=== PATIENT | female | born 1995 | race Caucasian/White ===

== ENCOUNTER 2016-07-16 13:55 | Emergency (ER) | payer BC ==
[2016-07-16 14:06] VITALS: BP 120/78
--- NOTE | 2016-07-16 15:35 | ED ---
Skin/Abscess/FB HPI - General Chief complaint: Skin/Abscess/Foreign Body Stated complaint: abcess buttox Time Seen by Provider: 07/16/16 14:22 Source: patient, RN notes reviewed Mode of arrival: ambulatory Limitations: no limitations - History of Present Illness Initial comments: 21-year-old female presents emergency Department with chief complaint of abscess her buttocks region. Patient states this started proximal week ago and was seen at [facility] started on Bactrim. She states that symptoms are getting worse and she's had increased pain. She follow-up with her surgeon and appear on who told her is nothing that they could do for. She states symptoms are getting worse PAIN. Patient states that she had similar symptoms in May when she was placed on Bactrim states that it started resolved states as soon she stopped the antibiotics it got much worse. Patient denies fever, chills. - Related Data Home Medications Medication Instructions Recorded Confirmed Aviane 1 tab PO DAILY 07/16/16 07/16/16 Sulfamethox-Tmp 800-160Mg [Bactrim 1 tab PO BID 07/16/16 07/16/16 DS 800-160 mg] traMADol HCl [Ultram] 50 - 100 mg PO Q6H PRN 07/16/16 07/16/16 Allergies Allergy/AdvReac Type Severity Reaction Status Date / Time No Known Allergies Allergy Verified 07/16/16 14:46 Review of Systems ROS Statement: Those systems with pertinent positive or pertinent negative responses have been documented in the HPI. ROS Other: All systems not noted in ROS Statement are negative. Past Medical History Past Medical History: No Reported History History of Any Multi-Drug Resistant Organisms: None Reported Past Surgical History: No Surgical Hx Reported Past Psychological History: No Psychological Hx Reported Smoking Status: Current some day smoker Past Alcohol Use History: None Reported Past Drug Use History: None Reported General Exam Limitations: no limitations General appearance: alert, in no apparent distress Head exam: Present: atraumatic, normocephalic, normal inspection Respiratory exam: Present: normal lung sounds bilaterally. Absent: respiratory distress, wheezes, rales, rhonchi, stridor Cardiovascular Exam: Present: regular rate, normal rhythm, normal heart sounds. Absent: systolic murmur, diastolic murmur, rubs, gallop, clicks GI/Abdominal exam: Present: soft, normal bowel sounds. Absent: distended, tenderness, guarding, rebound, rigid Rectal exam: Present: other (There is a tender mass on the left inner buttocks region near the perirectal area minimal erythema but there is severely tender with palpation) Course Vital Signs 07/16/16 14:02 Temperature 99.1 F Pulse Rate 78 Respiratory 17 Rate Blood Pressure 120/78 O2 Sat by Pulse 100 Oximetry Medical Decision Making - Medical Decision Making 5-year-old female presented for buttocks abscess. Patient was evaluated by Dr. Stephan Verduzco surgeon in the ER. She feels that there is an abscess there though she has no rectal tenderness in that she'll be scheduled for surgery on Tuesday. - Lab Data Result diagrams: 07/16/16 16:05 Lab Results 07/16/16 Range/Units 16:05 WBC 8.7 (4.0-11.0) k/uL RBC 4.12 (3.80-5.40) m/uL Hgb 12.9 (11.4-16.0) gm/dL Hct 38.3 (34.0-46.0) % MCV 92.8 (80.0-100.0) fL MCH 31.4 (25.0-35.0) pg MCHC 33.8 (31.0-37.0) g/dL RDW 12.0 (11.5-15.5) % Plt Count 254 (150-450) k/uL Neutrophils % 69 % Lymphocytes % 22 % Monocytes % 4 % Eosinophils % 3 % Basophils % 1 % Neutrophils # 6.0 (1.3-7.7) k/uL Lymphocytes # 1.9 (1.0-4.8) k/uL Monocytes # 0.3 (0-1.0) k/uL Eosinophils # 0.3 (0-0.7) k/uL Basophils # 0.1 (0-0.2) k/uL Disposition Clinical Impression: Left buttock abscess Disposition: HOME SELF-CARE Condition: Stable Instructions: Abscess (ED) Additional Instructions: Please return to the Emergency Department if symptoms worsen or any other concerns. Continue medications as directed. Referrals: Phil Hernández DO [Primary Care Provider] - 1-2 days Mya Echeverria MD [STAFF PHYSICIAN] - 1-2 days Time of Disposition: 15:50
--- NOTE | 2016-07-16 15:52 | P.GSHP ---
History of Present Illness H&P Date: 07/16/16 Chief Complaint: Perianal swelling and pain Patient is a 21-year-old white female who states that for the past 2 months she has had left buttock perianal swelling and pain. In May she was treated with a course of antibiotics and the area has increased in size since that time. She was seen recently in the emergency room in the [facility] and sent to general surgeon Drs. Cueto who was told that she needed to wait until this came to a head. The patient presents here with persistent discomfort and swelling in the left vignesh anal area. The patient denies any fever. Past surgical history: Negative Past medical history: Negative Medications: Bactrim and Ultram ALLERGIES: Negative Social history: Smoking: Occasional Alcohol: Negative Last menstrual period 3 weeks ago No pregnancies Review of systems: HEENT negative Lungs negative Heart negative GI as stated negative - Constitutional Constitutional: Reports as per HPI - Cardiovascular Cardiovascular: Reports as per HPI - Respiratory Respiratory: Reports as per HPI - Gastrointestinal Comment: Left perianal swelling and tenderness - Genitourinary (Female) Genitourinary: Reports as per HPI Past Medical History Past Medical History: No Reported History History of Any Multi-Drug Resistant Organisms: None Reported Past Surgical History: No Surgical Hx Reported Past Psychological History: No Psychological Hx Reported Smoking Status: Current some day smoker Past Alcohol Use History: None Reported Past Drug Use History: None Reported Medications and Allergies Home Medications Medication Instructions Recorded Confirmed Type Aviane 1 tab PO DAILY 07/16/16 07/16/16 History Sulfamethox-Tmp 800-160Mg [Bactrim 1 tab PO BID 07/16/16 07/16/16 History DS 800-160 mg] traMADol HCl [Ultram] 50 - 100 mg PO Q6H PRN 07/16/16 07/16/16 History Allergies Allergy/AdvReac Type Severity Reaction Status Date / Time No Known Allergies Allergy Verified 07/16/16 14:46 Surgical - Exam Vital Signs Temp Pulse Resp BP Pulse Ox 99.1 F 78 17 120/78 100 07/16/16 14:02 07/16/16 14:02 07/16/16 14:02 07/16/16 14:02 07/16/16 14:02 - General well developed, moderate distress - Eyes normal ocular movement - ENT normal pinna, normal mucosa, no hearing loss - Neck no masses, trachea midline, no lymphadectomy - Respiratory normal expansion, normal respiratory effort, clear to auscultation - Cardiovascular Rhythm: regular Heart Sounds: normal: S1, S2 - Abdomen Abdomen: soft, non tender, bowel sounds - Rectum Left perianal fan less with some tenderness at the site Emergency room doctor placed a needle and noticed some purulent drainage Rectum: normal sphincter tone - Psychiatric oriented to time, oriented to person, oriented to place, speech is normal Assessment and Plan Plan: Impression/plan: 1. Left perianal swelling/abscess 2. I&D in the operating room
[2016-07-16] MEDS ORDERED: HYDROcodone/APAP 5-325MG 1 EACH TAB PO STA (15:53)
[2016-07-16 16:22] LABS: Basophils # (A) 0.1 k/uL (0-0.2); Basophils % (A) 1 %; CH 31.4; CHCM 33.9; Eosinophils # (A) 0.3 k/uL (0-0.7); Eosinophils % (A) 3 %; HCT 38.3 % (34.0-46.0); HGB 12.9 gm/dL (11.4-16.0); Luc # (Auto) 0.14; Luc % (Auto) 2; Lymphocytes # (A) 1.9 k/uL (1.0-4.8); Lymphocytes % (A) 22 %; MCH 31.4 pg (25.0-35.0); MCHC 33.8 g/dL (31.0-37.0); MCV 92.8 fL (80.0-100.0); Mean Platelet Volume 7.6; Monocytes # (A) 0.3 k/uL (0-1.0); Monocytes % (A) 4 %; Neutrophils % (A) 69 %; RBC 4.12 m/uL (3.80-5.40); WBC 8.7 k/uL (4.0-11.0); WBC (Perox) 8.62
[2016-07-16 16:33] LABS: ALT 22 U/L (9-52); AST 25 U/L (14-36); Alkaline Phosphatase 69 U/L (38-126); Anion Gap 16 mmol/L; Blood Urea Nitrogen 8 mg/dL (7-17); Calcium 9.8 mg/dL (8.4-10.2); Carbon Dioxide 23 mmol/L (22-30); Chloride 106 mmol/L (98-107); Glucose 83 mg/dL (74-99); Non-African American GFR(MDRD) >60 (>60 ml/min/1.73 sqM); Sodium 145 mmol/L (137-145); Total Bilirubin 0.6 mg/dL (0.2-1.3); Total Protein 8.4 g/dL (6.3-8.2)
[2016-07-16 16:34] LABS: Potassium 4.1 mmol/L (3.5-5.1)
[2016-07-16 17:00] VITALS: PULSE 72; RESP 18; TEMP 98.3
== END 2016-07-16 16:59 | disposition home or self-care (01) ==
LOC: EC 13:55
DX: L02.31 Cutaneous abscess of buttock (principal); F17.200 Nicotine dependence, unspecified, uncomplicated; Z79.3 Long term (current) use of hormonal contraceptives
CPT/HCPCS: 36415; 80053; 85025; 87040; 87070; 87205; 99283

== ENCOUNTER 2016-07-20 11:22 | Day surgery (SDC) | payer BC ==
[2016-07-19 08:52] VITALS: BMI 22.6
[~2016-07-20 11:22] MED LIST: ceFAZolin 2 GM in SODIUM CHLORIDE 0.9% 100 ML IVPB ONE; metroNIDAZOLE-NS PMX 500 MG in SALINE 1 100ML.BAG IVPB ONE
[2016-07-20] MEDS ORDERED: HEPARIN SODIUM,PORCINE 5,000 UNIT/ML 1 ML VIAL SQ ONE (11:48)
[2016-07-20] MEDS ORDERED: LACTATED RINGERS 1,000 ML IV ONE (12:08)
[2016-07-20] MEDS ORDERED: LIDOCAINE 1% 20 ML VIAL (10MG/ML) FOR IV START INTRADERMA ONE (12:09)
[2016-07-20] MEDS ORDERED: ONDANSETRON 4 MG/2 ML VIAL IVP ONE (12:14)
[2016-07-20] MEDS ORDERED: DEXAMETHASONE SOD PHOSPHATE 10 MG/ML 1 ML VIAL IV ONE (12:16)
[2016-07-20] MEDS ORDERED: fentaNYL (PF) 50 MCG/ML 2 ML AMP ONE (12:18)
[2016-07-20] MEDS ORDERED: LIDOCAINE 1% INJ 10MG/ML (20 ML MDV) ONE (12:18)
[2016-07-20] MEDS ORDERED: MIDAZOLAM 2 MG/2 ML VIAL ONE (12:18)
[2016-07-20] MEDS ORDERED: PROPOFOL 10 MG/ML 20 ML VIAL IV ONE (12:18)
[2016-07-20] MEDS ORDERED: LIDOCAINE 1% INJ 10MG/ML (20 ML MDV) SQ ONE (12:37)
--- NOTE | 2016-07-20 12:53 | P.OP ---
Date of Procedure: 07/20/16 Preoperative Diagnosis: Left perianal abscess Postoperative Diagnosis: Resolving left perianal abscess Procedure(s) Performed: I&D of left perianal resolving abscess Anesthesia: SABRA Surgeon: Mya Echeverria Estimated Blood Loss (ml): 3 IV fluids (ml): 500 Pathology: none sent (Cultures obtained) Condition: stable Disposition: PACU Indications for Procedure: Perianal swelling and pain Operative Findings: Left perianal. A 2 cm area of induration and resolving abscess cavity Description of Procedure: Patient is a 21-year-old white female who is being treated with antibiotics for several weeks related to swelling in the left perianal area. She was seen in the emergency room 18-gauge needle was placed and purulent drainage was obtained. Patient comes for more complete drainage of this area. The patient was brought to the operating room and following induction of anesthesia she was placed in a jackknife position. The area was prepped and draped in a sterile fashion. Examination of the perianal area revealed an area of firmness and induration approximately 2 cm from the anal verge in the left perianal area. An incision was made over the area of induration. An approximately 2 x 2 centimeters cavity was identified with no definite purulent drainage noted. The area was well irrigated after cultures had been obtained. The area was then packed using quarter inch iodoform gauze. The patient tolerated procedure in stable condition. It should be noted that preoperatively a rectal examination had been performed which did not show connection of the area of abscess with the mucosa of the rectum. The findings were consistent with a partially treated perianal abscess.
--- NOTE | 2016-07-20 12:55 | P.DS ---
Providers Attending physician: Mya Echeverria Primary care physician: Phil Hernández Plan - Discharge Summary New Discharge Prescriptions: HYDROcodone/APAP 5-325MG [[place] 5] 1 - 2 each PO Q4H PRN #20 tab PRN Reason: Pain Discharge Medication List Aviane 1 tab PO DAILY 07/16/16 [History] Sulfamethox-Tmp 800-160Mg [Bactrim DS 800-160 mg] 1 tab PO BID 07/16/16 [History ] traMADol HCl [Ultram] 50 - 100 mg PO Q6H PRN 07/16/16 [History] HYDROcodone/APAP 5-325MG [[place] 5-325] 1 tab PO Q6HR PRN 07/19/16 [History] HYDROcodone/APAP 5-325MG [[place] 5] 1 - 2 each PO Q4H PRN #20 tab 07/20/16 [Rx] Follow up Appointment(s)/Referral(s): Mya Echeverria MD [STAFF PHYSICIAN] - 1 Week Activity/Diet/Wound Care/Special Instructions: Sitz baths twice a day teach patient family how to pack wound cavity Discharge Disposition: HOME SELF-CARE
[2016-07-20 13:11] VITALS: TEMP 97.2
[2016-07-20] MEDS: HYDROmorphone 1 MG/ML 1 ML SYRINGE IVP ONE ×2 (13:30→13:36)
[2016-07-20] MEDS ORDERED: KETOROLAC 30 MG/ML 1 ML VIAL IVP ONE (13:30)
[2016-07-20 13:56] VITALS: PULSE 67; RESP 16
[2016-07-20] MEDS ORDERED: HYDROcodone/APAP 5-325MG 1 EACH TAB PO ONE (14:10)
[2016-07-20 14:41] VITALS: BP 115/70
== END 2016-07-20 14:54 | disposition home or self-care (01) ==
LOC: OR 11:22
PROVIDERS: ATTEND Surgery
DX: K61.0 Anal abscess (principal); Z79.2 Long term (current) use of antibiotics; Z79.3 Long term (current) use of hormonal contraceptives; Z79.899 Other long term (current) drug therapy
CPT/HCPCS: 81025; 87070; 87205; 87075; 46050; J2250; J1644; J1100; J0690; J2405; J2001; J3010; J1885; J1170; J2704

== ENCOUNTER 2017-11-18 10:15 | Emergency (ER) | payer BC ==
[2017-11-18] MEDS ORDERED: IBUPROFEN 600 MG TAB PO STA (11:38)
[2017-11-18] MEDS ORDERED: DEXAMETHASONE SOD PHOSPHATE 10 MG/ML 1 ML VIAL IM STA (11:38)
[2017-11-18] MEDS ORDERED: FAMOTIDINE 20 MG TAB PO STA (11:38)
[2017-11-18] MEDS ORDERED: hydrOXYzine HCL 25 MG TAB PO STA (11:38)
--- NOTE | 2017-11-18 11:46 | ED ---
Skin/Abscess/FB HPI - General Chief complaint: Skin/Abscess/Foreign Body Stated complaint: bee sting, rt ankle swelling and hives Time Seen by Provider: 11/18/17 10:28 Source: patient, RN notes reviewed, old records reviewed Mode of arrival: ambulatory Limitations: no limitations - History of Present Illness Initial comments: This is a 22-year-old female the ER for evaluation ankle swelling. Patient states she has bee sting on right ankle yesterday and woke up with significant swelling of right ankle today. Patient has no medical history takes no medications. Denies any other complaints no feelings of shortness of breath cough or sore throat. No feelings of throat closing. No other rash or hives noted - Related Data Previous Rx's Medication Instructions Recorded Famotidine [Pepcid] 20 mg PO BID #28 tablet 11/18/17 Ibuprofen [Motrin] 600 mg PO Q8HR #20 tab 11/18/17 diphenhydrAMINE [Benadryl] 50 mg PO QID PRN #20 capsule 11/18/17 predniSONE 50 mg PO DAILY #5 tab 11/18/17 Allergies Allergy/AdvReac Type Severity Reaction Status Date / Time adhesive tape Allergy Rash/Hives Verified 11/18/17 10:35 Review of Systems ROS Statement: Those systems with pertinent positive or pertinent negative responses have been documented in the HPI. ROS Other: All systems not noted in ROS Statement are negative. Past Medical History Past Medical History: No Reported History History of Any Multi-Drug Resistant Organisms: None Reported Past Surgical History: No Surgical Hx Reported Additional Past Surgical History / Comment(s): abcess removed Past Psychological History: No Psychological Hx Reported Smoking Status: Current some day smoker Past Alcohol Use History: None Reported Past Drug Use History: None Reported General Exam - General Exam Comments Initial Comments: Mild right ankle edema around the sting bite Limitations: no limitations General appearance: alert, in no apparent distress Head exam: Present: atraumatic, normocephalic, normal inspection Eye exam: Present: normal appearance, PERRL, EOMI. Absent: scleral icterus, conjunctival injection, periorbital swelling ENT exam: Present: normal exam, mucous membranes moist Neck exam: Present: normal inspection. Absent: tenderness, meningismus, lymphadenopathy Respiratory exam: Present: normal lung sounds bilaterally. Absent: respiratory distress, wheezes, rales, rhonchi, stridor Cardiovascular Exam: Present: regular rate, normal rhythm, normal heart sounds. Absent: systolic murmur, diastolic murmur, rubs, gallop, clicks GI/Abdominal exam: Present: soft, normal bowel sounds. Absent: distended, tenderness, guarding, rebound, rigid Extremities exam: Present: normal inspection, full ROM, normal capillary refill. Absent: tenderness, pedal edema, joint swelling, calf tenderness Back exam: Present: normal inspection Neurological exam: Present: alert, oriented X3, CN II-XII intact Psychiatric exam: Present: normal affect, normal mood Skin exam: Present: warm, dry, intact, normal color. Absent: rash Course Vital Signs 11/18/17 11/18/17 10:20 11:55 Temperature 98.6 F 98.2 F Pulse Rate 74 59 L Respiratory 18 16 Rate Blood Pressure 172/76 128/66 O2 Sat by Pulse 100 100 Oximetry Medical Decision Making - Medical Decision Making 22 female the ER for evaluation right ankle bee sting. Patient will be treated appropriately discharged Disposition Clinical Impression: Bug bite, Bee sting, Edema of right ankle Disposition: HOME SELF-CARE Instructions: Insect Bite or Sting (ED) Prescriptions: diphenhydrAMINE [Benadryl] 50 mg PO QID PRN #20 capsule PRN Reason: itching/rash Famotidine [Pepcid] 20 mg PO BID #28 tablet Ibuprofen [Motrin] 600 mg PO Q8HR #20 tab predniSONE 50 mg PO DAILY #5 tab Is patient prescribed a controlled substance at d/c from ED?: No Referrals: Phil Hernández DO [Primary Care Provider] - 1-2 days
[2017-11-18 11:56] VITALS: BP 128/66; PULSE 59; RESP 16; TEMP 98.2
== END 2017-11-18 12:12 | disposition home or self-care (01) ==
LOC: EC 10:15
DX: T63.441A Toxic effect of venom of bees, accidental (unintentional), initial encounter (principal); R60.0 Localized edema; F17.200 Nicotine dependence, unspecified, uncomplicated; Z91.048 Other nonmedicinal substance allergy status
CPT/HCPCS: 99284; 96372; J1100

== ENCOUNTER → 2018-01-05 | Outpatient (CLI) | payer BC | END | disposition home or self-care (01) | LOC: LABWHC1 14:05 | PROVIDERS: ATTEND Physician Assistant | DX: O20.0 Threatened abortion (principal) | CPT/HCPCS: 36415; 84702 ==

== ENCOUNTER 2018-04-15 20:18 | Observation (INO) | payer BC, OTHER ==
[2018-04-15 21:32] LABS: Basophils # (A) 0.1 k/uL (0-0.2); Basophils % (A) 0 %; Eosinophils # (A) 0.4 k/uL (0-0.7); Eosinophils % (A) 2 %; HCT 35.1 % (34.0-46.0); HGB 11.5 gm/dL (11.4-16.0); Lymphocytes # (A) 1.8 k/uL (1.0-4.8); Lymphocytes % (A) 11 %; MCH 31.4 pg (25.0-35.0); MCHC 32.9 g/dL (31.0-37.0); MCV 95.4 fL (80.0-100.0); Mean Platelet Volume 6.9; Monocytes # (A) 0.5 k/uL (0-1.0); Monocytes % (A) 3 %; Neutrophils # (A) 13.5 k/uL (1.3-7.7); Neutrophils % (A) 82 %; Platelet Count 265 k/uL (150-450); RBC 3.68 m/uL (3.80-5.40); RDW 12.8 % (11.5-15.5); WBC 16.4 k/uL (3.8-10.6)
[2018-04-15 21:43] LABS: ALT 33 U/L (9-52); AST 26 U/L (14-36); Alkaline Phosphatase 61 U/L (38-126); Anion Gap 8 mmol/L; Blood Urea Nitrogen 7 mg/dL (7-17); Calcium 9.2 mg/dL (8.4-10.2); Carbon Dioxide 22 mmol/L (22-30); Chloride 108 mmol/L (98-107); Glucose 85 mg/dL (74-99); Potassium 3.9 mmol/L (3.5-5.1); Sodium 138 mmol/L (137-145); Total Bilirubin 0.2 mg/dL (0.2-1.3)
[2018-04-15] MEDS ORDERED: SODIUM CHLORIDE 0.9% 1,000 ML IV STA (22:21)
--- NOTE | 2018-04-15 22:45 | ED ---
General Adult HPI - General Source: patient, RN notes reviewed, old records reviewed Mode of arrival: ambulatory Limitations: no limitations <Guero Chan - Last Filed: 04/15/18 23:01> <Chris Huizar - Last Filed: 04/17/18 10:01> - General Chief complaint: Skin/Abscess/Foreign Body Stated complaint: Abscess - History of Present Illness Initial comments: 22-year-old patient presents to ED after having pain in her rectal region. Patient has a past medical history of a perirectal abscess that required surgical intervention approximately 2 years ago. 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 Patient reports proximal and 2 days ago she noticed that she felt as if she is developing another abscess in her rectal region. Patient has pain with sitting, noticed some purulent drainage. Patient denies any other symptoms. Patient denies nausea vomiting diarrhea, fever or chills. Patient denies abdominal pain. Patient denies vaginal pain, vaginal bleeding, vaginal discharge, suprapubic pain, any other symptoms. Patient reports having normal bowel movements. Systemic: Pt denies fatigue, myalgia, fever/chills, rash. Pt denies weakness, night sweats, weight loss. Neuro: Pt denies headache, visual disturbances, syncope or pre-syncope. HEENT: Pt denies ocular discharge or irritation, otalgia, rhinorrhea, pharyngitis or notable lymphadenopathy. Cardiopulmonary: Pt denies chest pain, SOB, heart palpitations, dyspnea on exertion. Abdominal/GI: Pt denies abdominal pain, n/v/d. : Pt denies dysuria, burning w/ urination, frequency/urgency. Denies new onset urinary or bowel incontinence. MSK: Pt denies myalgia, loss of strength or function in extremities. Neuro: Pt denies new onset weakness, paresthesias. (Guero Chan) - Related Data Home Medications Medication Instructions Recorded Confirmed Pnv No.95/Ferrous Fum/Folic AC 1 tab PO DAILY 04/15/18 04/15/18 [ Multivitamin Tablet] Allergies Allergy/AdvReac Type Severity Reaction Status Date / Time adhesive tape Allergy Rash/Hives Verified 04/15/18 22:43 Review of Systems ROS Other: All systems not noted in ROS Statement are negative. <Guero Chan - Last Filed: 04/15/18 23:01> ROS Other: All systems not noted in ROS Statement are negative. <Chris Huizar - Last Filed: 04/17/18 10:01> ROS Statement: Those systems with pertinent positive or pertinent negative responses have been documented in the HPI. Past Medical History Past Medical History: No Reported History Additional Past Medical History / Comment(s): PERIANAL ABSCESS History of Any Multi-Drug Resistant Organisms: None Reported Past Surgical History: No Surgical Hx Reported Additional Past Surgical History / Comment(s): abcess removed Additional Past Anesthesia/Blood Transfusion Reaction / Comment(s): NO PRIOR SURGICAL HX Past Psychological History: No Psychological Hx Reported Smoking Status: Current some day smoker Past Alcohol Use History: None Reported Past Drug Use History: None Reported - Past Family History Mother Family Medical History: No Reported History <Guero Chan - Last Filed: 04/15/18 23:01> - Past Family History Mother Family Medical History: No Reported History Father Family Medical History: No Reported History <Chris Huizar - Last Filed: 04/17/18 10:01> General Exam Limitations: no limitations <Guero Chan - Last Filed: 04/15/18 23:01> <Chris Huizar - Last Filed: 04/17/18 10:01> - General Exam Comments Initial Comments: Constitutional: NAD, AOX3, Pt has pleasant affect. HEENT: NC/AT, trachea midline, neck supple, no lymphadenopathy. Posterior pharynx non erythematous, without exudates. External ears appear normal, without discharge. Mucous membranes moist. Eyes PERRLA, EOM intact. There is no scleral icterus. No pallor noted. Cardiopulmonary: RRR, no murmurs, rubs or gallops, no JVD noted. Lungs CTAB in anterior and posterior curran. No peripheral edema. Abdominal exam: Abdomen soft and non-distended. Abdomen non-tender to palpation in all 4 quadrants. Bowel sounds active in LLQ. No hepatosplenomegaly. No ecchymosis Neuro: CN II-XII grossly intact. No nuchal rigidity. MSK: No posterior calf tenderness bilaterally, homans sign negative bilaterally. Posterior tibialis and radial pulse +2 bilaterally. Sensation intact in upper and lower extremities. Full active ROM in upper and lower extremities, 5/5 stregnth. Derm: Approximately 3x3 cm abscess noted in right perirectal gluteal cleft region. Draining with some purulent fluid. (Guero Chan) Vital Signs 04/15/18 04/15/18 20:24 22:08 Temperature 98.3 F 98.6 F Pulse Rate 98 94 Respiratory 18 18 Rate Blood Pressure 118/77 113/73 O2 Sat by Pulse 100 99 Oximetry Medical Decision Making - Lab Data Result diagrams: 04/15/18 21:16 04/15/18 21:16 <Guero Chan - Last Filed: 04/15/18 23:01> - Lab Data Result diagrams: 04/15/18 21:16 04/15/18 21:16 <Chris Huizar - Last Filed: 04/17/18 10:01> - Medical Decision Making 22-year-old patient presents to ED after having pain in her rectal region. Patient has a past medical history of a perirectal abscess that required surgical intervention approximately 2 years ago. 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 Patient reports proximal and 2 days ago she noticed that she felt as if she is developing another abscess in her rectal region. Patient has pain with sitting, noticed some purulent drainage. Vital signs stable, patient afebrile. Physical exam revealed Approximately 3x3 cm abscess noted in right perirectal gluteal cleft region. Draining with some purulent fluid.Laboratory investigations revealed leukocytosis of 16.4. CMP noncompressive. Plasma lactic acid within normal limits. Blood cultures obtained. Wound culture obtained. Patient administered 1 L normal saline. edge inker heels surgery attending Dr. Quevedo consulted. Pt Ob Dr. Ramey consulted. Pt to be admitted, started on zosyn. Case discussed and pt examined by Dr. Joshua. (Guero Chan) I saw this patient in conjunction with the physician speech and language assistant. I performed independent history and physical exam. Agree with case management. (Chris Huizar) - Lab Data Lab Results 04/15/18 04/15/18 04/15/18 Range/Units 21:16 21:16 21:16 WBC 16.4 H (3.8-10.6) k/uL RBC 3.68 L (3.80-5.40) m/uL Hgb 11.5 (11.4-16.0) gm/dL Hct 35.1 (34.0-46.0) % MCV 95.4 (80.0-100.0) fL MCH 31.4 (25.0-35.0) pg MCHC 32.9 (31.0-37.0) g/dL RDW 12.8 (11.5-15.5) % Plt Count 265 (150-450) k/uL Neutrophils % 82 % Lymphocytes % 11 % Monocytes % 3 % Eosinophils % 2 % Basophils % 0 % Neutrophils # 13.5 H (1.3-7.7) k/uL Lymphocytes # 1.8 (1.0-4.8) k/uL Monocytes # 0.5 (0-1.0) k/uL Eosinophils # 0.4 (0-0.7) k/uL Basophils # 0.1 (0-0.2) k/uL Sodium 138 (137-145) mmol/L Potassium 3.9 (3.5-5.1) mmol/L Chloride 108 H (98-107) mmol/L Carbon Dioxide 22 (22-30) mmol/L Anion Gap 8 mmol/L BUN 7 (7-17) mg/dL Creatinine 0.40 L (0.52-1.04) mg/dL Est GFR (CKD-EPI)AfAm >90 (>60 ml/min/1.73 sqM) Est GFR (CKD-EPI)NonAf >90 (>60 ml/min/1.73 sqM) Glucose 85 (74-99) mg/dL Plasma Lactic Acid Leobardo (0.7-2.0) mmol/L Calcium 9.2 (8.4-10.2) mg/dL Total Bilirubin 0.2 (0.2-1.3) mg/dL AST 26 (14-36) U/L ALT 33 (9-52) U/L Alkaline Phosphatase 61 (38-126) U/L Total Protein 7.0 (6.3-8.2) g/dL Albumin 4.0 (3.5-5.0) g/dL HCG, Quant 28076.0 mIU/mL Urine Color Urine Appearance (Clear) Urine pH (5.0-8.0) Ur Specific [place] (1.001-1.035) Urine Protein (Negative) Urine Glucose (UA) (Negative) Urine Ketones (Negative) Urine Blood (Negative) Urine Nitrite (Negative) Urine Bilirubin (Negative) Urine Urobilinogen (<2.0) mg/dL Ur Leukocyte Esterase (Negative) Urine RBC (0-5) /hpf Urine WBC (0-5) /hpf Ur Squamous Epith Cells (0-4) /hpf 04/15/18 04/15/18 Range/Units 22:04 23:37 WBC (3.8-10.6) k/uL RBC (3.80-5.40) m/uL Hgb (11.4-16.0) gm/dL Hct (34.0-46.0) % MCV (80.0-100.0) fL MCH (25.0-35.0) pg MCHC (31.0-37.0) g/dL RDW (11.5-15.5) % Plt Count (150-450) k/uL Neutrophils % % Lymphocytes % % Monocytes % % Eosinophils % % Basophils % % Neutrophils # (1.3-7.7) k/uL Lymphocytes # (1.0-4.8) k/uL Monocytes # (0-1.0) k/uL Eosinophils # (0-0.7) k/uL Basophils # (0-0.2) k/uL Sodium (137-145) mmol/L Potassium (3.5-5.1) mmol/L Chloride (98-107) mmol/L Carbon Dioxide (22-30) mmol/L Anion Gap mmol/L BUN (7-17) mg/dL Creatinine (0.52-1.04) mg/dL Est GFR (CKD-EPI)AfAm (>60 ml/min/1.73 sqM) Est GFR (CKD-EPI)NonAf (>60 ml/min/1.73 sqM) Glucose (74-99) mg/dL Plasma Lactic Acid Leobardo 0.8 (0.7-2.0) mmol/L Calcium (8.4-10.2) mg/dL Total Bilirubin (0.2-1.3) mg/dL AST (14-36) U/L ALT (9-52) U/L Alkaline Phosphatase (38-126) U/L Total Protein (6.3-8.2) g/dL Albumin (3.5-5.0) g/dL HCG, Quant mIU/mL Urine Color Light Yellow Urine Appearance Clear (Clear) Urine pH 6.5 (5.0-8.0) Ur Specific [place] 1.010 (1.001-1.035) Urine Protein Negative (Negative) Urine Glucose (UA) Negative (Negative) Urine Ketones Trace H (Negative) Urine Blood Negative (Negative) Urine Nitrite Negative (Negative) Urine Bilirubin Negative (Negative) Urine Urobilinogen <2.0 (<2.0) mg/dL Ur Leukocyte Esterase Trace H (Negative) Urine RBC <1 (0-5) /hpf Urine WBC <1 (0-5) /hpf Ur Squamous Epith Cells 2 (0-4) /hpf Disposition Is patient prescribed a controlled substance at d/c from ED?: No Decision Time: 22:59 <Guero Chan - Last Filed: 04/15/18 23:01> <Chris Huizar - Last Filed: 04/17/18 10:01> Clinical Impression: Perirectal abscess Disposition: ADMITTED IP TO THIS HOSP Condition: Good
[2018-04-15] MEDS ORDERED: ACETAMINOPHEN TAB 325 MG TAB PO PRN (22:59)
[2018-04-15] MEDS ORDERED: NALOXONE 0.4 MG/ML 1 ML VIAL IV PRN (22:59)
[2018-04-15 23:54] LABS: Appearance,Urine Clear (Clear); Bilirubin,Urine Negative (Negative); Blood,Urine Negative (Negative); Color,Urine Light Yellow; Glucose,Urine (UA) Negative (Negative); Ketones,Urine Trace (Negative); Leukocyte Esterase,Urine Trace (Negative); Nitrite,Urine Negative (Negative); PH, Urine 6.5 (5.0-8.0); Protein,Urine Negative (Negative); RBC,Urine <1 /hpf (0-5); Squamous Epithelial Cell,Urine 2 /hpf (0-4); Urobilinogen,Urine <2.0 mg/dL (<2.0)
[2018-04-16] MEDS: PIPERACILLIN-TAZOBACTAM 3.375 GM in SODIUM CHLORIDE 0.9% 100 ML IVPB SCH ×4 (00:34→23:38)
--- NOTE | 2018-04-16 10:12 | P.GSHP ---
History of Present Illness H&P Date: 04/16/18 Chief Complaint: Perirectal abscess 22-year-old female currently 19 weeks . Presents with complaints of pain to the left perianal location for the last 1 week or so. Increasing in severity. Spontaneous drainage for the last 24-48 hours. No fevers. Unable to sit on that area. History of similar problem 2 years ago. Patient had a incision and drainage performed by Dr. Stephan Verduzco at that time. She did have packing postoperatively. - Review of Systems Comment: The patient denies any acute changes in vision or hearing, no dysphagia or odynophagia, no chest pain or shortness of breath, no dysuria or hematuria, no headache, no runny nose, no rectal bleeding or melena, no unexplained weight loss Past Medical History Past Medical History: No Reported History Additional Past Medical History / Comment(s): PERIANAL ABSCESS History of Any Multi-Drug Resistant Organisms: None Reported Past Surgical History: No Surgical Hx Reported Additional Past Surgical History / Comment(s): abcess removed Past Anesthesia/Blood Transfusion Reactions: No Reported Reaction Additional Past Anesthesia/Blood Transfusion Reaction / Comment(s): NO PRIOR SURGICAL HX Past Psychological History: No Psychological Hx Reported Smoking Status: Never smoker Past Alcohol Use History: None Reported Additional Past Alcohol Use History / Comment(s): QUIT SMOKING 07/16/16 Past Drug Use History: None Reported - Past Family History Mother Family Medical History: No Reported History Father Family Medical History: No Reported History Medications and Allergies Home Medications Medication Instructions Recorded Confirmed Type Pnv No.95/Ferrous Fum/Folic AC 1 tab PO DAILY 04/15/18 04/15/18 History [ Multivitamin Tablet] Allergies Allergy/AdvReac Type Severity Reaction Status Date / Time adhesive tape Allergy Rash/Hives Verified 04/15/18 22:43 Surgical - Exam Vital Signs Temp Pulse Resp BP Pulse Ox 98.3 F 98 18 118/77 100 04/15/18 20:24 04/15/18 20:24 04/15/18 20:24 04/15/18 20:24 04/15/18 20:24 Physical exam: General: Well-developed, well-nourished HEENT: Normocephalic, sclerae nonicteric Abdomen: Nontender, nondistended Extremities: No edema Neuro: Alert and oriented Rectal: Large indurated tender mass measuring approximate 3-4 cm left perirectal location with small wound measuring only a few millimeters in size draining purulent fluid, significant only tender, mild erythema, fluctuance noted, suggestive previous scar Results - Labs 04/15/18 21:16 04/15/18 21:16 Abnormal Lab Results - Last 24 Hours (Table) 04/15/18 04/15/18 04/15/18 Range/Units 21:16 21:16 23:37 WBC 16.4 H (3.8-10.6) k/uL RBC 3.68 L (3.80-5.40) m/uL Neutrophils # 13.5 H (1.3-7.7) k/uL Chloride 108 H (98-107) mmol/L Creatinine 0.40 L (0.52-1.04) mg/dL Urine Ketones Trace H (Negative) Ur Leukocyte Esterase Trace H (Negative) Diabetes panel 04/15/18 Range/Units 21:16 Sodium 138 (137-145) mmol/L Potassium 3.9 (3.5-5.1) mmol/L Chloride 108 H (98-107) mmol/L Carbon Dioxide 22 (22-30) mmol/L BUN 7 (7-17) mg/dL Creatinine 0.40 L (0.52-1.04) mg/dL Glucose 85 (74-99) mg/dL Calcium 9.2 (8.4-10.2) mg/dL AST 26 (14-36) U/L ALT 33 (9-52) U/L Alkaline Phosphatase 61 (38-126) U/L Total Protein 7.0 (6.3-8.2) g/dL Albumin 4.0 (3.5-5.0) g/dL Calcium panel 04/15/18 Range/Units 21:16 Calcium 9.2 (8.4-10.2) mg/dL Albumin 4.0 (3.5-5.0) g/dL Pituitary panel 04/15/18 Range/Units 21:16 Sodium 138 (137-145) mmol/L Potassium 3.9 (3.5-5.1) mmol/L Chloride 108 H (98-107) mmol/L Carbon Dioxide 22 (22-30) mmol/L BUN 7 (7-17) mg/dL Creatinine 0.40 L (0.52-1.04) mg/dL Glucose 85 (74-99) mg/dL Calcium 9.2 (8.4-10.2) mg/dL Adrenal panel 04/15/18 Range/Units 21:16 Sodium 138 (137-145) mmol/L Potassium 3.9 (3.5-5.1) mmol/L Chloride 108 H (98-107) mmol/L Carbon Dioxide 22 (22-30) mmol/L BUN 7 (7-17) mg/dL Creatinine 0.40 L (0.52-1.04) mg/dL Glucose 85 (74-99) mg/dL Calcium 9.2 (8.4-10.2) mg/dL Total Bilirubin 0.2 (0.2-1.3) mg/dL AST 26 (14-36) U/L ALT 33 (9-52) U/L Alkaline Phosphatase 61 (38-126) U/L Total Protein 7.0 (6.3-8.2) g/dL Albumin 4.0 (3.5-5.0) g/dL Assessment and Plan (1) Perirectal abscess Narrative/Plan: Will proceed with incision and drainage of this left-sided perirectal abscess at this time. Possibility of underlying fistula reviewed with the patient. We' ll have OB check for heart tones pre-and postop. Risks of bleeding, infection, recurrence, complications regarding and related to her reviewed. She understands and wishes to proceed. Current Visit: Yes Status: Acute Code(s): K61.1 - RECTAL ABSCESS SNOMED Code(s): 37245328
--- NOTE | 2018-04-16 12:14 | P.OBCN ---
History of Present Illness Consult date: 04/16/18 Requesting physician: Jose Quevedo Reason for consult: other (19 weeks intrauterine , perirectal abscess) History of present illness: The patient is a 22-year-old 1 para 0 admitted at approximately 19 weeks of gestation by dates established in the office. She reports that over the last several days she has had increasingly significant discomfort in the perirectal area with swelling such that she has been unable to sit down for the last 12-24 hours. She has had a history of a previous perirectal abscess and has noted drainage from this lesion. She was seen through the emergency room where the diagnosis was made and, after evaluation by Dr. Quevedo, was consented to be taken to the operating room for incision and drainage. heart tones have been normal by Doppler since admission. Obstetrical history: 1 para 0 current statistics listed in history of present illness. There have been no reported obstetrical complications to this point. Gynecologic history: Unremarkable. Review of Systems Review of systems is confined to history of present illness. Past Medical History Past Medical History: No Reported History Additional Past Medical History / Comment(s): PERIANAL ABSCESS History of Any Multi-Drug Resistant Organisms: None Reported Past Surgical History: No Surgical Hx Reported Additional Past Surgical History / Comment(s): abcess removed Past Anesthesia/Blood Transfusion Reactions: No Reported Reaction Additional Past Anesthesia/Blood Transfusion Reaction / Comm: NO PRIOR SURGICAL HX Past Psychological History: No Psychological Hx Reported Smoking Status: Never smoker Past Alcohol Use History: None Reported Additional Past Alcohol Use History / Comment(s): QUIT SMOKING 07/16/16 Past Drug Use History: None Reported - Past Family History Mother Family Medical History: No Reported History Father Family Medical History: No Reported History Medications and Allergies Home Medications Medication Instructions Recorded Confirmed Type Pnv No.95/Ferrous Fum/Folic AC 1 tab PO DAILY 04/15/18 04/15/18 History [ Multivitamin Tablet] Allergies Allergy/AdvReac Type Severity Reaction Status Date / Time adhesive tape Allergy Rash/Hives Verified 04/15/18 22:43 Exam Vital Signs Temp Pulse Pulse Resp BP BP Pulse Ox 04/16/18 08:37 98.5 F 74 16 105/68 99 04/16/18 00:17 98 F 84 18 109/68 98 04/15/18 23:51 98.9 F 88 18 114/66 99 04/15/18 22:08 98.6 F 94 18 113/73 99 04/15/18 20:24 98.3 F 98 18 118/77 100 Intake and Output 04/15/18 04/16/18 04/16/18 22:59 06:59 14:59 Intake Total 100 Balance 100 Intake: Intake, IV Titration 100 Amount Piperacillin-Tazobactam 3 100 .375 gm In Sodium Chloride 0.9% 100 ml @ 25 mls/hr IVPB Q8HR [facility] Rx# :[id number] Other: Voiding Method Toilet # Voids 2 Weight 69.4 kg In general, this is a well-developed, well-nourished white female in no acute distress. Her heart has a regular rhythm and rate without murmur. Her lungs are clear to auscultation bilaterally in all curran. Her abdomen is nondistended and with normal active bowel sounds. The uterine fundus is just below the umbilicus and is nontender to palpation. There are otherwise no masses or abdominal findings. Her extremities without any cyanosis, clubbing, or edema and are nontender to palpation bilaterally. Digital cervical examination is deferred as is examination of the perirectal abscess. Results Result Diagrams: 04/15/18 21:16 04/15/18 21:16 Abnormal Lab Results - Last 24 Hours (Table) 04/15/18 04/15/18 04/15/18 Range/Units 21:16 21:16 23:37 WBC 16.4 H (3.8-10.6) k/uL RBC 3.68 L (3.80-5.40) m/uL Neutrophils # 13.5 H (1.3-7.7) k/uL Chloride 108 H (98-107) mmol/L Creatinine 0.40 L (0.52-1.04) mg/dL Urine Ketones Trace H (Negative) Ur Leukocyte Esterase Trace H (Negative) Microbiology - Last 24 Hours (Table) 04/15/18 22:29 Wound Culture - Preliminary Buttock Assessment and Plan (1) 19 weeks gestation of Current Visit: Yes Status: Acute Code(s): Z3A.19 - 19 WEEKS GESTATION OF SNOMED Code(s): 74506799 (2) Perirectal abscess Current Visit: Yes Status: Acute Code(s): K61.1 - RECTAL ABSCESS SNOMED Code(s): 61726237 Plan: As the is currently previable, no specific intervention is necessary other than daily confirmation of heart tones. I have recommended that heart tones be obtained prior to the surgery and then following surgery either in recovery or upon return to the floor. No other obstetrical intervention is necessary at this time. Further instructions regarding the incision and drainage of the abscess will be left to general surgery. I would recommend that she follow-up in the office this week for a recheck. I will continue to follow it at distance but will be available for any further questions or concerns. Thank you for the consult.
[2018-04-16] MEDS ORDERED: IV FLUID CONTINUATION 1,000 ML IV ONE (12:50)
[2018-04-16] MEDS ORDERED: BUPIVACAINE-EPI 0.5%-1:200,000 10 ML VIAL SQ ONE (13:20)
[2018-04-16] MEDS ORDERED: LACTATED RINGERS 1,000 ML IV ONE (13:28)
--- NOTE | 2018-04-16 13:41 | P.OP ---
Date of Procedure: 04/16/18 Procedure(s) Performed: PREOPERATIVE DIAGNOSIS: Left perirectal abscess POSTOPERATIVE DIAGNOSIS: Same PROCEDURE: Incision and drainage SURGEON: Emy EBL: 5 mL ANESTHESIA: Final COMPLICATIONS: None OPERATIVE PROCEDURE: Patient placed in the left decubitus position. The buttocks were taped open. The left buttock was prepped and draped. The patient had a fistulous-appearing opening 2 cm from the anal verge at the 9:00 location. There was some granulation tissue coming out of this fistulous opening. The defect size was only 1-2 mm. Bluntly I was able to enter into a subcutaneous abscess cavity. This abscess itself had measurements of approximately 5 x 2 cm. Cultures were again taken. The opening was enlarged using electrocautery removing a small portion of skin with the granulation tissue. The area was irrigated with saline. The internal opening of the suspected fistula was not able to be identified at this time. The area was localized. The wound was then packed with 1/2 inch iodophor gauze. Sterile dressings were applied. DISPOSITION: Stable to recovery room
[2018-04-17 00:04] VITALS: RESP 16; TEMP 98.4
[2018-04-17 07:56] VITALS: BP 95/59; PULSE 70
[2018-04-17] MEDS: PIPERACILLIN-TAZOBACTAM 3.375 GM in SODIUM CHLORIDE 0.9% 100 ML IVPB SCH (07:56)
--- NOTE | 2018-04-17 10:09 | P.DS ---
Providers Date of admission: 04/15/18 23:41 Expected date of discharge: 04/17/18 Attending physician: Jose Quevedo Consults: 04/15/18 22:52 Consult Physician Stat Consulting Provider: Tatyana Ramey Consult Reason/Comments: Your patient Do you want consulting provider notified?: Yes Primary care physician: Phil Hernández - Discharge Diagnosis(es) (1) Perirectal abscess Patient minute through the emergency department with a perirectal abscess. Patient underwent incision and drainage in the operating room yesterday morning. She is doing well today. Pain is improved. Plan will be to remove the packing today. Patient will be taught how to pack this wound at home. Prescription for [place] and Augmentin provided. We'll discharge if cleared by obstetrics. Current Visit: Yes Status: Acute Patient Condition at Discharge: Good Plan - Discharge Summary New Discharge Prescriptions: No Action Pnv No.95/Ferrous Fum/Folic AC [ Multivitamin Tablet] 1 tab PO DAILY Discharge Medication List Pnv No.95/Ferrous Fum/Folic AC [ Multivitamin Tablet] 1 tab PO DAILY [History] Follow up Appointment(s)/Referral(s): Phil Hernández, [Primary Care Provider] - 1-2 days Jose Quevedo MD [Medical Doctor] - 2 Weeks
--- NOTE | 2018-04-17 12:35 | P.PN ---
Subjective Progress Note Date: 04/17/18 Principal diagnosis: 19 weeks IUP, perirectal abscess The patient reports feeling significantly better since incision and drainage of the abscess. She is tolerating regular diet and performing all activities of daily living. She reports regular movement. Objective - Vital Signs Vital signs: Vital Signs Temp 98.4 F 04/17/18 07:53 Pulse 70 04/17/18 07:53 Resp 16 04/17/18 07:53 BP 95/59 04/17/18 07:53 Pulse Ox 100 04/17/18 07:53 Intake & Output 04/16/18 04/17/18 04/17/18 18:59 06:59 18:59 Intake Total 1010 100 Output Total 5 Balance 1005 100 Intake: IV 650 Piperacillin-Tazobactam 3 100 .375 gm In Sodium Chloride 0.9% 100 ml @ 25 mls/hr IVPB Q8HR [facility] Rx# :[id number] Oral 360 100 Output: Estimated Blood Loss 5 Other: # Voids 2 - Exam In general, this is a well-developed, well-nourished white female in no acute distress. Her abdomen is nondistended, soft, nontender, and without any masses aside from uterine fundus at approximately the umbilicus which is also nontender to palpation. Her extremities are without any cyanosis, clubbing, or edema and are nontender to palpation bilaterally. - Labs CBC & Chem 7: 04/15/18 21:16 04/15/18 21:16 Labs: Microbiology - Last 24 Hours (Table) 04/15/18 22:29 Gram Stain - Preliminary Buttock Wound Culture - Preliminary Gram Neg Bacilli 04/16/18 13:32 Gram Stain - Preliminary Other - Other Wound Culture - Preliminary 04/15/18 21:16 Blood Culture - Preliminary Blood No Growth after 24 hours 04/16/18 13:32 Anaerobic Culture - Preliminary Other - Other Assessment and Plan (1) 19 weeks gestation of Current Visit: Yes Status: Acute Code(s): Z3A.19 - 19 WEEKS GESTATION OF SNOMED Code(s): 26201038 (2) Perirectal abscess Current Visit: Yes Status: Acute Code(s): K61.1 - RECTAL ABSCESS SNOMED Code(s): 43574384 Plan: Agree with plan to discharge home today. I have asked the patient to follow-up in approximately 1 week's time and she has an appointment scheduled in our office on April 26 which should be adequate. Should she have any further questions or concerns from an obstetrical standpoint, she can call the office or on-call doctor at any time.
== END 2018-04-17 13:11 | disposition home or self-care (01) ==
LOC: SUPCPDRO 20:18 → EC 20:18 → 4SSUR 23:41
PROVIDERS: ADMIT Surgery; ATTEND Surgery
DX: O26.892 Other specified pregnancy related conditions, second trimester (principal); K61.1 Rectal abscess; Z3A.19 19 weeks gestation of pregnancy; Z87.891 Personal history of nicotine dependence; Z91.048 Other nonmedicinal substance allergy status
CPT/HCPCS: 96360; 99284; 36415; 86900; 86901; 80053; 83605; 85025; 86850; 81001; 84702; 87040; 87070 ×2; 87205 ×2; 87075; 87077 ×2; 87186 ×2; 46040; G0378 ×3; J2543 ×2

== ENCOUNTER 2018-07-30 13:43 | Outpatient (CLI) | payer BC, OTHER ==
[2018-07-30 14:31] LABS: Appearance,Urine Clear (Clear); Bilirubin,Urine Negative (Negative); Blood,Urine Negative (Negative); Color,Urine Light Yellow; Glucose,Urine (UA) Negative (Negative); Ketones,Urine 1+ (Negative); Leukocyte Esterase,Urine Negative (Negative); Nitrite,Urine Negative (Negative); PH, Urine 6.5 (5.0-8.0); Protein,Urine Negative (Negative); Specific Gravity,Urine 1.003 (1.001-1.035); Urobilinogen,Urine <2.0 mg/dL (<2.0)
[2018-07-30 17:50] VITALS: BP 128/73; PULSE 90; RESP 16; TEMP 97.7
--- NOTE | 2018-08-27 09:58 | P.MSEPDOC ---
Presenting Problems - Arrival Data Date of Arrival on Unit: 07/30/18 Time of Arrival on Unit: 13:43 Mode of Transport: Ambulatory - Complaint OB-Reason for Admission/Chief Complaint: Possible Onset of Labor Medical History - Information : 1 Para: 0 Term: 0 : 0 Abortions: Spontaneous or Elective: 0 Number of Living Children: 0 - Gestational Age Gestational Age by JANE (wks/days): 34 Weeks and 1 Days Review of Systems - Review of Systems Constitutional: No problems Breast: No problems ENT: No problems Cardiovascular: No problems Respiratory: No problems Gastrointestinal: No problems Genitourinary: No problems Musculoskeletal: No problems Neurological: No problems Skin: No problems Vital Signs - Temperature Temperature: 97.7 F Temperature Source: Tympanic - Pulse Right Sitting Pulse Rate: 90 Pulse Assessment Method: Automatic Cuff - Respirations Respiratory Rate: 16 Oxygen Delivery Method: Room Air - Blood Pressure Right Arm Blood Pressure: 128/73 Blood Pressure Mean: 91 Blood Pressure Source: Automatic Cuff Medical Screen Scoring (Pre) - Cervical Exam Dilation: Exam Deferred Effacement: Exam Deferred Membranes: Intact - Uterine Contractions Frequency: N/A - Maternal Vital Signs Maternal Temperature: N/A Maternal Blood Pressure: N/A Signs of Preeclampsia: N/A Maternal Respirations: N/A - Pain Assessment Pain Scale Used: Numeric (1 - 10) Pain Intensity: 0 - Maternal Trauma Maternal Trauma: N/A - Total Score Total Score (Pre): 0 Physician Notification (Pre) - Physician Notified Physician Notified Date: 07/30/18 Physician Notified Time: 14:35 Physician/Practitioner Notifed:: Seamus New Order Received: Yes (D/c home) Disposition - Disposition OB Disposition: Discharge to home Discharge Date: 07/30/18 Discharge Time: 14:48 I agree with the RN Medical Screening Exam: Yes Risk & Benefit of care provided described in d/c instruction: Yes Diagnosis: FALSE LABOR BEFORE 37 COMPLETED WEEKS OF GEST, THIRD TRI
== END 2018-07-30 14:48 | disposition home or self-care (01) ==
LOC: FBPOP 13:43
PROVIDERS: ATTEND Obstetrics & Gynecology Obstetrics
DX: O47.03 False labor before 37 completed weeks of gestation, third trimester (principal); Z3A.34 34 weeks gestation of pregnancy
CPT/HCPCS: 59025; 81003; 99213

== ENCOUNTER 2018-07-31 08:04 | Outpatient (CLI) | payer BC, OTHER ==
[2018-07-31 11:34] VITALS: BP 117/68; PULSE 77; RESP 16; TEMP 96.4
--- NOTE | 2018-08-21 09:18 | P.MSEPDOC ---
Presenting Problems - Arrival Data Date of Arrival on Unit: 07/31/18 Time of Arrival on Unit: 08:05 Mode of Transport: Ambulatory - Complaint OB-Reason for Admission/Chief Complaint: Decreased Movement, Vaginal Bleeding Medical History - Information : 1 Para: 0 Term: 0 : 0 Abortions: Spontaneous or Elective: 0 Number of Living Children: 0 - Gestational Age Gestational Age by JANE (wks/days): 34 Weeks and 2 Days Review of Systems - Review of Systems Constitutional: No problems Breast: No problems ENT: No problems Cardiovascular: No problems Respiratory: No problems Gastrointestinal: No problems Genitourinary: No problems Musculoskeletal: No problems Neurological: No problems Skin: No problems Vital Signs - Temperature Temperature: 96.4 F Temperature Source: Temporal Artery Scan - Pulse Right Sitting Pulse Rate: 77 Pulse Assessment Method: Auscultation - Respirations Respiratory Rate: 16 Oxygen Delivery Method: Room Air O2 Sat by Pulse Oximetry: 98 - Blood Pressure Right Arm Blood Pressure: 117/68 Blood Pressure Mean: 84 Blood Pressure Source: Automatic Cuff Medical Screen Scoring (Pre) - Cervical Exam Dilation: Exam Deferred Effacement: Exam Deferred Membranes: Intact - Uterine Contractions Frequency: N/A Duration: N/A Intensity: N/A - Maternal Vital Signs Maternal Temperature: N/A Maternal Blood Pressure: N/A Signs of Preeclampsia: N/A Maternal Respirations: N/A - Pain Assessment Pain Intensity: 0 Pain Behavior: None Exhibited - Maternal Trauma Maternal Trauma: N/A - Assessment Baseline FHR: 125 Heart Rate - NICHD Category: Category I (Normal) = 0 NST: Reactive Position: N/A Station: N/A - Total Score Total Score (Pre): 0 - Level of Risk Level of Risk: Low (0-5) Physician Notification (Pre) - Physician Notified Physician Notified Date: 07/31/18 Physician Notified Time: 09:18 Physician/Practitioner Notifed:: Jalil New Order Received: Yes (D/c home) Disposition - Disposition OB Disposition: Discharge to home Discharge Date: 07/31/18 Discharge Time: 09:20 I agree with the RN Medical Screening Exam: Yes Risk & Benefit of care provided described in d/c instruction: Yes Diagnosis: DECREASED MOVEMENTS, THIRD TRIMESTER, FETUS 1
== END 2018-07-31 09:20 | disposition home or self-care (01) ==
LOC: FBPOP 08:04
PROVIDERS: ATTEND Obstetrics & Gynecology
DX: O36.8130 Decreased fetal movements, third trimester, not applicable or unspecified (principal); Z3A.34 34 weeks gestation of pregnancy
CPT/HCPCS: 59025; 99213

== ENCOUNTER 2018-09-06 20:25 | Outpatient (CLI) | payer BC, OTHER ==
[2018-09-06 20:52] VITALS: BP 136/83; PULSE 82; RESP 16; TEMP 97.3
--- NOTE | 2018-10-04 07:38 | P.MSEPDOC ---
Presenting Problems - Arrival Data Date of Arrival on Unit: 09/06/18 Time of Arrival on Unit: 20:25 Mode of Transport: Ambulatory - Complaint OB-Reason for Admission/Chief Complaint: Vaginal Bleeding Comment: pt checked in office today by Dr Ramey Medical History - Information : 1 Para: 0 Term: 0 : 0 Abortions: Spontaneous or Elective: 0 Number of Living Children: 0 - Gestational Age Gestational Age by JANE (wks/days): 39 Weeks and 4 Days Review of Systems - Review of Systems Constitutional: No problems Breast: No problems ENT: No problems Cardiovascular: No problems Respiratory: No problems Gastrointestinal: No problems Genitourinary: No problems Musculoskeletal: No problems Neurological: No problems Skin: No problems Vital Signs - Temperature Temperature: 97.3 F Temperature Source: Temporal Artery Scan - Pulse Right Sitting Radial Pulse Rate: 82 Pulse Assessment Method: Automatic Cuff - Respirations Respiratory Rate: 16 Oxygen Delivery Method: Room Air O2 Sat by Pulse Oximetry: 100 - Blood Pressure Right Arm Sitting Blood Pressure: 136/83 Blood Pressure Mean: 100 Blood Pressure Source: Automatic Cuff Medical Screen Scoring (Pre) - Cervical Exam Dilation: 1-3 cm = 1 Membranes: Intact - Uterine Contractions Frequency: > 5 minutes apart = 1 - Maternal Vital Signs Maternal Temperature: N/A Maternal Blood Pressure: N/A Signs of Preeclampsia: N/A Maternal Respirations: N/A - Assessment - Baby A Baseline FHR: 135 Heart Rate - NICHD Category: Category I (Normal) = 0 NST: Reactive Position: N/A Station: N/A - Total Score - Baby A Total Score - Baby A: 2 Medical Screen Scoring (Post) - Cervical Exam Dilation: 1-3 cm = 1 Membranes: Intact - Uterine Contractions Frequency: N/A Duration: N/A Intensity: N/A - Maternal Vital Signs Maternal Temperature: N/A Maternal Respirations: N/A - Pain Assessment Pain Scale Used: Numeric (1 - 10) Pain Intensity: 0 - Maternal Trauma Maternal Trauma: N/A - Assessment - Baby A Heart Rate: 135 Heart Rate - NICHD Category: Category I (Normal) = 0 NST: Reactive Position: N/A Station: N/A - Total Score Total Score - Baby A: 1 - Post Treatment Level of Risk Post Treatment Level of Risk - Baby A: Low (0-5) Physician Notification (Post) - Physician Notified Physician Notified Date: 09/06/18 Physician Notified Time: 21:43 Physician/Practitioner Notified:: Dr. Ramey Spoke With: Dr. Ramey New Order Received: Yes - Notification Comment Comment: RN reported maternal and status to Dr. Ramey. Cervical exam remains unchanged after one hour. No contractions noted per patient or per toco. Amnisure negative. Dr. Ramey states patient can be discharged with instructions to follow up on September 11. Discharge instructions given. Patient verbalizes understanding. Disposition - Disposition OB Disposition: Discharge to home Discharge Date: 09/06/18 Discharge Time: 21:52 I agree with the RN Medical Screening Exam: Yes Risk & Benefit of care provided described in d/c instruction: Yes Diagnosis: FALSE LABOR AT OR AFTER 37 COMPLETED WEEKS OF GESTATION
== END 2018-09-06 21:52 | disposition home or self-care (01) ==
LOC: FBPOP 20:25
PROVIDERS: ATTEND Obstetrics & Gynecology
DX: O47.1 False labor at or after 37 completed weeks of gestation (principal); Z3A.39 39 weeks gestation of pregnancy
CPT/HCPCS: 59025; 99213

== ENCOUNTER 2018-09-09 16:56 | Inpatient (IN) | payer BC, OTHER ==
[2018-09-13 03:32] VITALS: BMI 32.5
[2018-09-13] MEDS: LACTATED RINGERS 1,000 ML IV SCH ×2 (03:50→17:45)
[2018-09-13] MEDS ORDERED: LIDOCAINE 0.5% (PF) 5 MG/ML (50 ML SDV) SQ PRN (03:51)
[2018-09-13] MEDS ORDERED: METHYLERGONOVINE 0.2 MG/ML 1 ML AMP IM PRN (03:51)
[2018-09-13] MEDS ORDERED: CARBOPROST TROMETHAMINE 250 MCG/ML 1 ML AMP IM PRN (03:51)
[2018-09-13] MEDS ORDERED: OXYTOCIN 10 UNIT/ML 1 ML VIAL IM PRN (03:51)
[2018-09-13] MEDS ORDERED: TERBUTALINE 1 MG/ML VIAL SQ PRN (03:51)
[2018-09-13 04:00] LABS: Basophils % (A) 0 %; Eosinophils # (A) 0.2 k/uL (0-0.7); Eosinophils % (A) 1 %; HCT 39.2 % (34.0-46.0); HGB 12.8 gm/dL (11.4-16.0); Lymphocytes # (A) 1.5 k/uL (1.0-4.8); Lymphocytes % (A) 9 %; MCH 30.9 pg (25.0-35.0); MCHC 32.7 g/dL (31.0-37.0); MCV 94.3 fL (80.0-100.0); Monocytes # (A) 0.6 k/uL (0-1.0); Monocytes % (A) 4 %; Neutrophils # (A) 14.2 k/uL (1.3-7.7); Neutrophils % (A) 86 %; Platelet Count 279 k/uL (150-450); RBC 4.16 m/uL (3.80-5.40); RDW 12.5 % (11.5-15.5); WBC 16.6 k/uL (3.8-10.6)
[2018-09-13] MEDS ORDERED: LACTATED RINGERS 1,000 ML IV SCH ×2 (04:00→10:00)
[2018-09-13] MEDS ORDERED: OXYTOCIN 30 UNITS/500 ML NS 30 UNIT in SALINE 1 500ML.BAG IV SCH (04:00)
[2018-09-13] MEDS ORDERED: SODIUM CHLORIDE 0.9% 100 ML BAG ONE (08:13)
[2018-09-13] MEDS ORDERED: ROPIVACAINE 5MG/ML 20ML VIAL ONE (08:13)
[2018-09-13] MEDS ORDERED: fentaNYL (PF) 50 MCG/ML 5 ML AMP ONE (08:13)
--- NOTE | 2018-09-13 08:24 | P.HPOB ---
History of Present Illness H&P Date: 09/13/18 This is a 23-year-old white female 1 para 0 EDC 09/09/2018 at 40-4/7 weeks' gestation. Patient presented with strong regular uterine contractions. Fetus is been active throughout the . She denies vaginal bleeding or fluid leakage. Past medical history is essentially negative. Past surgical history appendectomy process of the left buttock incised 2015. Current medications vitamins. ALLERGIES none known. Family history is essentially negative. Social history patient smokes one half pack tobacco daily, she is single, she denies alcohol or drug use. Obstetric history is significant for blood type A+, rubella status immune. VDRL testing, urine culture, hepatitis B surface antigen, HIV testing, gonorrhea and chlamydia cultures, group B strep cultures all negative. One-hour Glucola 106. On exam this is a pleasant white female, 5 foot 6 inches, 202 pounds, vital signs are stable and she is afebrile. The general exam is within normal limits. Cervix is 4 cm dilated, 90% effaced, -1 station, vertex presentation. Internal scalp lead was applied. heart tones are reassuring in the 120s baseline with frequent accelerations consistent with reactive NST. Impression: 40-4/7 weeks intrauterine , active spontaneous labor, all signs reassuring. Plan: Oxytocin augmentation as needed. Close maternal and surveillance. Patient is requesting epidural and this is being placed currently. Anticipate normal spontaneous vaginal delivery. Review of Systems Constitutional: Reports as per HPI Past Medical History Past Medical History: No Reported History Additional Past Medical History / Comment(s): PERIANAL ABSCESS History of Any Multi-Drug Resistant Organisms: None Reported Past Surgical History: No Surgical Hx Reported Additional Past Surgical History / Comment(s): abcess removed Past Anesthesia/Blood Transfusion Reactions: No Reported Reaction Additional Past Anesthesia/Blood Transfusion Reaction / Comment(s): NO PRIOR SURGICAL HX Past Psychological History: No Psychological Hx Reported Smoking Status: Never smoker Past Alcohol Use History: None Reported Additional Past Alcohol Use History / Comment(s): QUIT SMOKING 07/16/16 Past Drug Use History: None Reported - Past Family History Mother Family Medical History: No Reported History Father Family Medical History: No Reported History Medications and Allergies Home Medications Medication Instructions Recorded Confirmed Type Pnv No.95/Ferrous Fum/Folic AC 1 tab PO DAILY 04/15/18 09/06/18 History [ Multivitamin Tablet] Allergies Allergy/AdvReac Type Severity Reaction Status Date / Time adhesive tape Allergy Rash/Hives Verified 07/30/18 13:56 Exam Vital Signs Temp Pulse Resp BP Pulse Ox 09/13/18 03:25 97.9 F 85 16 139/86 99 Intake and Output 09/12/18 09/13/18 09/13/18 22:59 06:59 14:59 Intake Total 1000 Balance 1000 Intake: Intake, IV Titration 1000 Amount Lactated Ringers 1,000 ml 1000 @ 999 mls/hr IV .Q1H1M [facility] Rx#:[id number] Other: Weight 91.626 kg see dictation please Results Result Diagrams: 09/13/18 03:50 Abnormal Lab Results - Last 24 Hours (Table) 09/13/18 Range/Units 03:50 WBC 16.6 H (3.8-10.6) k/uL Neutrophils # 14.2 H (1.3-7.7) k/uL Assessment and Plan Assessment: 40-4/7 weeks intrauterine , early spontaneous active labor. All signs reassuring. Plan: Continue close maternal and surveillance. Oxytocin augmentation as needed. Anticipate normal spontaneous vaginal delivery. Time with Patient: Less than 30
[2018-09-13] MEDS ORDERED: ceFAZolin IN SWFI 2 GM/20 ML SYRINGE IVP ONE (08:58)
[2018-09-13] MEDS ORDERED: CITRIC ACID-SODIUM CITRATE 15 ML CUP PO ONE (08:58)
[2018-09-13] MEDS ORDERED: LACTATED RINGERS 1,000 ML BAG IV ONE (09:05)
[2018-09-13] MEDS ORDERED: fentaNYL (PF) 50 MCG/ML 2 ML AMP ONE (09:05)
[2018-09-13] MEDS ORDERED: ONDANSETRON 4 MG/2 ML VIAL ONE (09:05)
[2018-09-13] MEDS ORDERED: OXYTOCIN 10 UNIT/ML 1 ML VIAL ONE (09:05)
[2018-09-13] MEDS ORDERED: ACETAMINOPHEN IV (For NPO) 1,000 MG/100 ML VIAL ONE (09:05)
[2018-09-13] MEDS ORDERED: MORPHINE SULFATE (PF) 0.3 MG/0.3 ML SYR ONE (09:05)
[2018-09-13] MEDS ORDERED: KETOROLAC 30 MG/ML 1 ML VIAL ONE (09:05)
[2018-09-13] MEDS ORDERED: SIMETHICONE 80 MG CHEWABLE PO PRN (09:49)
[2018-09-13] MEDS ORDERED: METOCLOPRAMIDE 5 MG/ML 2 ML VIAL IVP PRN (09:49)
[2018-09-13] MEDS ORDERED: ACETAMINOPHEN TAB 325 MG TAB PO PRN (09:49)
[2018-09-13] MEDS ORDERED: ONDANSETRON 4 MG/2 ML VIAL IVP PRN (09:49)
[2018-09-13] MEDS ORDERED: HYDROcodone/APAP 5-325MG 1 EACH TAB PO PRN (09:49)
[2018-09-13] MEDS ORDERED: IBUPROFEN 600 MG TAB PO PRN (09:49)
[2018-09-13] MEDS ORDERED: diphenhydrAMINE 50 MG CAP PO PRN (09:49)
[2018-09-13] MEDS ORDERED: ZOLPIDEM 5 MG TAB PO PRN (09:49)
[2018-09-13] MEDS ORDERED: diphenhydrAMINE 50 MG/ML 1 ML VIAL IVP PRN ×2 (09:49)
[2018-09-13] MEDS ORDERED: NALOXONE 0.4 MG/ML 1 ML VIAL IV PRN (09:49)
[2018-09-13] MEDS ORDERED: KETOROLAC 30 MG/ML 1 ML VIAL IVP PRN (09:49)
[2018-09-13] MEDS ORDERED: diphenhydrAMINE 25 MG CAP PO PRN (09:49)
--- NOTE | 2018-09-13 09:49 | P.OP ---
Date of Procedure: 09/13/18 Preoperative Diagnosis: 40-4/7 weeks intrauterine , nonreassuring heart tones in the first stage of labor. Postoperative Diagnosis: Same, tight nuchal cord 1, liveborn male . Procedure(s) Performed: Primary low transverse section Anesthesia: epidural Surgeon: Tatyana Ramey Hydraulic Jack Adjuster #1: Theo Valdes Estimated Blood Loss (ml): 400 IV fluids (ml): 1,300 Urine output (ml): 100 Pathology: none sent Condition: stable Disposition: PACU Indications for Procedure: 13-15 minute deceleration in the first stage of labor, with absence of variability Operative Findings: Liveborn male infant, scores 8 and 9, 6 lbs. 14 oz. or 3130 g, tight nuchal cord 1 Description of Procedure: After an approximately 15 minute deceleration into the 50s to 60s range, patient is brought to the operating room after Bhatti catheter is placed. Epidural has been bolused. She is placed in the dorsal supine position with left lateral uterine displacement. The appropriate timeout was performed. Analgesia is checked and noted to be normal after the abdomen is prepped and draped in usual sterile fashion. A low transverse skin incision is made in this is carried down through the subcutaneous tissue to the fascia. Fascia is isolated and scored, extended bilaterally with curved Phoenix scissors. Peritoneum is next identified and incised, there is no bowel or bladder involvement. Bladder blade is placed over the top of the lower uterine segment. At all times the bladder is low and well from the operative field. A low transverse uterine incision is made in this is extended bluntly. 's head is delivered in the occiput anterior position at 0919 hours. There was a tight nuchal cord that is reduced. The oropharynx, nasopharynx, and external nares are all bulb suctioned. Patient is officially delivered of a liveborn male at 0919 hours. Umbilical cord is doubly clamped and ligated, he is handed to waiting nurses for evaluation where scores of 8 and 9 at one and 5 minutes respectively are given. weighs 6 lbs. 14 oz. or 3130 g. The placenta is then delivered manually, it is inspected and noted to be intact with trivascular cord at 0920 hours. Terminal meconium is noted. The uterus is then externalized. It is wiped clean with a sterile sponge to avoid any retained products of conception. The uterus is closed in a two-step fashion, first layer 0 Vicryl running locking. Second layer imbricated also with 0 Vicryl for excellent reapproximation. Bilateral tubes and ovaries appear normal. No uterine defects are noted. Abdomen is suctioned with suction on guard. Uterus is then gently placed back into the abdominal cavity. Bilateral gutters are inspected and cleaned. Hemostasis is excellent. Peritoneum is allowed to close by secondary intention. Fascia is closed in a running stitch of 0 Vicryl suture. Subcutaneous tissue is irrigated, is clean and dry. 4-0 undyed Monocryl stitch is used subcuticularly for final skin closure. Mastisol and Steri-Strips are applied to the wound. Bhatti is noted to be draining clear urine. All sponge needle and enhancement counts are correct. Issues brought back to recovery room in very good condition with stable vital signs including respiratory rate of 16, 96% O2 saturation on room air, pulse 82, blood pressure 98/50. Patient is requesting circumcision for her son. Please note that antibiotics were given preoperatively, 2 g of Kefzol.
[2018-09-13] MEDS ORDERED: ROPIVACAINE 100 MG, fentaNYL (PF) 200 MCG in SODIUM CHLORIDE 0.9% 76 ML EPIDURAL ONE (12:54)
[2018-09-13] MEDS: SENNOSIDES-DOCUSATE SODIUM 1 EACH TAB PO SCH (22:42)
--- NOTE | 2018-09-14 07:47 | P.PN ---
Subjective Progress Note Date: 09/14/18 Principal diagnosis: Postoperative day #1 Patient tired this morning. Pain well managed. No other complaints. Objective - Vital Signs Vital signs: Vital Signs Temp 98.1 F 09/14/18 04:00 Pulse 83 09/14/18 04:00 Resp 15 09/14/18 04:00 BP 104/58 09/14/18 04:00 Pulse Ox 100 09/13/18 11:47 Intake & Output 09/13/18 09/14/18 09/14/18 18:59 06:59 18:59 Intake Total 3000 Output Total 850 800 Balance 2150 -800 Intake: Intake, IV Titration 3000 Amount Lactated Ringers 1,000 ml 2000 @ 125 mls/hr IV .Q8H NATHAN Rx#:[id number] Lactated Ringers 1,000 ml 1000 @ 999 mls/hr IV .Q1H1M NATHAN Rx#:[id number] Output: Urine 450 800 Uretheral (Bhatti) 450 Estimated Blood Loss 400 Other: # Voids 1 - Constitutional General appearance: Present: average body habitus, cooperative - EENT Eyes: Present: PERRLA ENT: Present: hearing grossly normal - Respiratory Respiratory: bilateral: CTA - Cardiovascular Rhythm: regular - Gastrointestinal General gastrointestinal: Present: normal bowel sounds - Genitourinary Genitourinary Comment(s): Fundus firm, midline, symmetric, 18 week size, nontender - Integumentary Integumentary Comment(s): Incision clean and dry, Steri-Strips applied Integumentary: Present: normal - Neurologic Neurologic: Present: CNII-XII intact - Musculoskeletal Musculoskeletal: Present: gait normal, strength equal bilaterally - Psychiatric Psychiatric: Present: A&O x's 3, appropriate affect, intact judgment & insight - Labs CBC & Chem 7: 09/13/18 03:50 Assessment and Plan Assessment: Postoperative day #1, doing well. Plan: Advance diet and activity. Circumcision this morning. Lately discharge home tomorrow. Time with Patient: Less than 30
[2018-09-14] MEDS: SENNOSIDES-DOCUSATE SODIUM 1 EACH TAB PO SCH ×2 (08:22→19:37)
[2018-09-14 11:58] LABS: Basophils % (A) 0 %; Eosinophils # (A) 0.1 k/uL (0-0.7); Eosinophils % (A) 1 %; HCT 30.6 % (34.0-46.0); HGB 10.2 gm/dL (11.4-16.0); Lymphocytes # (A) 1.8 k/uL (1.0-4.8); Lymphocytes % (A) 13 %; MCH 32.1 pg (25.0-35.0); MCHC 33.2 g/dL (31.0-37.0); MCV 96.8 fL (80.0-100.0); Monocytes # (A) 0.4 k/uL (0-1.0); Monocytes % (A) 3 %; Neutrophils # (A) 11.5 k/uL (1.3-7.7); Neutrophils % (A) 82 %; Platelet Count 203 k/uL (150-450); RBC 3.17 m/uL (3.80-5.40); RDW 12.8 % (11.5-15.5)
[2018-09-14 23:22] VITALS: RESP 18
[2018-09-15 08:33] VITALS: BP 132/70; PULSE 92; TEMP 98.1
--- NOTE | 2018-09-15 09:27 | P.DS ---
Providers Date of admission: 09/13/18 03:00 Expected date of discharge: 09/15/18 Attending physician: Tatyana Ramey Primary care physician: Stated None Hospital Course: This is a 23-year-old white female 1 para 0 EDC 09/09/2018 at 40-4/7 weeks' gestation. Patient presented with strong regular uterine contractions and in early labor pattern. Artificial amniorrhexis revealed clear fluid. was essentially unremarkable, group B strep cultures negative, blood type A+, rubella status immune. Please see my dictated history and physical for details. Through the course of the first stage of labor patient had category 3 heart tones. She had a deceleration that was expensive, approximately 12-15 minutes. Decision was made for primary low transverse section, as resuscitative efforts did not improve the pattern. Patient underwent a low-transverse section and gave to a liveborn male infant with scores of 8 and 9 at one and 5 minutes respectively. There was a tight nuchal cord 1 that was reduced. Estimated blood loss at the time of surgery was 400 mL's. weighed 6 lbs. 14 oz. or 3130 g. Please see my dictated operative note for details. This morning the patient feels well. She is voiding, ambulating, and passing flatus without difficulty. Vital signs are stable and she has remained afebrile. Fundus is firm and in the midline, symmetric and 18 week size. Incision is clean and dry, intact, Steri-Strips applied. Extremities reveal no edema. Laurel is doing well, circumcision was performed yesterday. Patient is judged to be in very good condition for discharge home. Patient will follow-up with me in the office in 2 weeks for an incision check. I reminded her no intercourse, tampons or douching. She will use Advil or Aleve, or [id number] Motrin as needed for pain. I reminded her no driving, no heavy lifting, no vacuuming, no extensive house or yard work. Call with any fevers shakes or chills, foul smelling or copious lochia, with the passage of large blood clots, with any pain not alleviated by [id number] products, or indeed with any concerns. will follow-up with tester food products as recommended. Patient Condition at Discharge: Good Plan - Discharge Summary Discharge Rx Participant: No New Discharge Prescriptions: No Action Pnv No.95/Ferrous Fum/Folic AC [ Multivitamin Tablet] 1 tab PO DAILY Discharge Medication List Pnv No.95/Ferrous Fum/Folic AC [ Multivitamin Tablet] 1 tab PO DAILY 04/15/18 [History] Follow up Appointment(s)/Referral(s): Tatyana Ramey MD [STAFF PHYSICIAN] - 2 Weeks Discharge Disposition: HOME SELF-CARE
[2018-09-15] MEDS: SENNOSIDES-DOCUSATE SODIUM 1 EACH TAB PO SCH (10:24)
== END 2018-09-15 10:23 | disposition home or self-care (01) | DRG 788 ==
LOC: 4FBP 09-13 03:00
PROVIDERS: ADMIT Obstetrics & Gynecology; ATTEND Obstetrics & Gynecology
PROC: 10H073Z Insertion of Monitoring Electrode into Products of Conception, Via Natural or Artificial Opening (ICD-10-PCS; 2018-09-13)
PROC: 4A1H74Z Monitoring of Products of Conception, Cardiac Electrical Activity, Via Natural or Artificial Opening (ICD-10-PCS; 2018-09-13)
PROC: 4A1H7HZ Monitoring of Products of Conception, Cardiac Sound, Via Natural or Artificial Opening (ICD-10-PCS; 2018-09-13)
PROC: 4A1H7FZ Monitoring of Products of Conception, Cardiac Rhythm, Via Natural or Artificial Opening (ICD-10-PCS; 2018-09-13)
PROC: 4A1H7CZ Monitoring of Products of Conception, Cardiac Rate, Via Natural or Artificial Opening (ICD-10-PCS; 2018-09-13)
PROC: 00HU33Z Insertion of Infusion Device into Spinal Canal, Percutaneous Approach (ICD-10-PCS; 2018-09-13)
PROC: 3E0R3BZ Introduction of Anesthetic Agent into Spinal Canal, Percutaneous Approach (ICD-10-PCS; 2018-09-13)
PROC: 10D00Z1 Extraction of Products of Conception, Low, Open Approach (ICD-10-PCS; principal; 2018-09-13 09:16)
DX: O69.1XX0 Labor and delivery complicated by cord around neck, with compression, not applicable or unspecified (principal); Z3A.40 40 weeks gestation of pregnancy; O76 Abnormality in fetal heart rate and rhythm complicating labor and delivery; Z37.0 Single live birth; Z79.899 Other long term (current) drug therapy; Z90.49 Acquired absence of other specified parts of digestive tract; Z87.891 Personal history of nicotine dependence; Z98.890 Other specified postprocedural states; Z91.048 Other nonmedicinal substance allergy status
CPT/HCPCS: 85025; 86850; 86900; 86901

== ENCOUNTER → 2021-09-02 | Outpatient (CLI) | payer BC, OTHER ==
--- NOTE | 2021-09-02 11:12 | XR ---
EXAMINATION TYPE: XR elbow complete LT DATE OF EXAM: 09/02/2021 CLINICAL HISTORY: pain TECHNIQUE: Frontal, lateral and oblique images of the left elbow are obtained. COMPARISON: None. FINDINGS: There is no acute fracture/dislocation evident of the elbow. No abnormal fat pad signs ar e seen. The overlying soft tissue appears unremarkable. IMPRESSION: There is no acute fracture or dislocation of the elbow. ICD 10 NO FRACTURE, INITIAL EVALUATION
== END | disposition home or self-care (01) ==
LOC: RADXRYALE 10:54
PROVIDERS: ATTEND Physician Assistant Medical
DX: M25.522 Pain in left elbow (principal)